=== PATIENT | female | born 1985 | race Caucasian/White ===

== ENCOUNTER 2019-02-08 16:48 | Inpatient (IN) ==
[~2019-02-08 16:48] MED LIST: *HR* Nalbuphine 10 MG/ML AMPUL IVP PRN; Famotidine 20 MG/2 ML VIAL IVP PRN; Lidocaine 1% 20 ML MDV INFILT PRN; Metoclopramide 10 MG/2 ML VIAL IVP PRN; Naloxone 0.4 MG/ML INJ IVP PRN; Ondansetron 4 MG/2 ML VIAL IVP PRN
[2019-02-08] MEDS ORDERED: Ringers Solution, Lactated 1,000 ML IVC SCH (17:00)
--- NOTE | 2019-02-08 17:04 | OB/GYN History & Physical ---
Date of Encounter: 02/08/19 Time of Encounter: 16:53 Assessment and Plan (1) 38 weeks gestation of Current visit: Yes Status: Acute (2) Intrauterine Current visit: Yes Status: Acute (3) Intact amniotic membranes during in third trimester Current visit: Yes Status: Acute (4) Active labor Current visit: Yes Status: Acute Admit to L&D for observation of labor Expectant management Intermittent monitoring Labs-CBC and type and screen Group A strep +: vancomycin 1275 mg every 12 hours Hand Molder to bedside for continuous labor support Anticipate vaginal delivery Dr. Lee is the OB on-call and is available as needed (5) Type O blood, Rh positive Current visit: Yes Status: Acute Cord blood will be collected at delivery History of Present Illness Chief complaint: contractions HPI: Ms. Ayala is a 33 year old female 012 at 38 weeks 6 days gestation with an estimated date of of 02/16/19 dated by early ultrasound. She presents with complaint of study contractions every 3-5 minutes since 1400 this afternoon. She endorses good movement and denies leakage of fluid, vaginal bleeding. She desires an unmedicated vaginal delivery. She has been followed by Dr. Alanis and the midwives throughout her . records are available electronically and have been reviewed. Her has only been complicated by a the diagnosis of group A strep from her group B strep testing. Labs: O+ GBS- GAS+ HIV- Hep B- T. Pallidum Rubella immune Varicella immune Past Med Surg Social Fam HX - Past Medical History Medical history: no medical history Psychiatric history: no psych history - Past Surgical History Additional surgical history: wisdom teeth - Social History Smoking Status: Never smoker Smokeless Tobacco Status: No Alcohol use: none Drug use: none - Family History Mother Family Member Ethnicity: Non- Living Status: Still Living Hx Family Cardiac Disorders: No Hx Family Respiratory Disorders: No Hx Family Cancer: No Hx Family GI Disorders: No Hx Family Genitourinary Disorders: No Hx Family Endocrine Disorder: No Hx Family Musculoskeletal Disorders: No Hx Family Neuromuscular Disorders: No Hx Family Neurologic Disorders: No Hx Family HEENT Disorders: No Hx Family Autoimmune Disorders: No Hx Family Reproductive Disorders: No Hx Family Psychosocial Disorders: No Hx Family Medical Disorders: Yes (hypertension) Obstetrical History - Pregnancies : 4 Para: 2 Term: 2 (# 1: 06/21/13,Male,Jr,7#10oz,Full term, Vaginal; # 3 normal spontaneous vaginal delivery () 09/04/2016 8 lbs) : 0 Ab's: 1 (# 2: MAB may 2015) Livin Medications and Allergies Vit37/Iron/Folic Acid [[place] Chewable Tablet] 1 each PO DAILY 09/04/16 [History] Allergy/AdvReac Type Severity Reaction Status Date / Time metronidazole [From Flagyl] Allergy Hives Verified 09/04/16 18:44 Penicillins Allergy Hives Verified 09/04/16 18:44 Review of System OB All systems PM: reviewed and no additional remarkable complaints except as stated Exam - Constitutional Constitutional: well developed, well nourished, no acute distress, mild distress, obese - HEENT HEENT: PERRL, Normocephaly, Mucus Membranes Moist - Neck Neck exam: full ROM - Lungs Respiratory exam: CTAB - Cardiovascular Cardiovascular exam: RRR, +S1, +S2 - Breasts Breast: bilateral: normal - Abdomen Abdomen: Present: bowel sounds normal, gravid, non tender - Extremities Extremities exam: full ROM, normal capillary refill, normal inspection, radial pulses palpable and symmetrical - Vulva Vulva: bilateral: normal - Vagina Vagina: Present: normal moisture - Cervix Dilation: 5 (per RN) Effacement: 90 Station: -2 - Uterus Uterus exam: Present: normal size, normal contour - Adnexa Adnexa: bilateral: normal - Anus/Rectum Anus/Rectum: Present: normal perianal skin Results All other labs normal. - VTE Reasons for not Prescribing Prophylaxis: Treatment not Indicated - Low risk for VTE
[2019-02-08 17:08] LABS: Amphetamine Screen,Urine Negative ng/mL (Cutoff=1000); Barbiturate Screen,Urine Negative ng/mL (Cutoff=200); Benzodiazepines Screen,Urine Negative ng/mL (Cutoff=200); Cannabinoid Screen,Urine Negative ng/mL (Cutoff = 50); Cocaine Screen,Urine Negative ng/mL (Cutoff= 300); Opiate Screen,Urine Negative ng/mL (Cutoff=300); Phencyclidine Screen,Urine Negative ng/mL (Cutoff=25)
[2019-02-08 17:36] LABS: Basophils % 0.2 %; Eosinophils # 0.1 K/mcL (0.0-0.6); Eosinophils % 0.6 %; Hematocrit 38.6 % (35.3-44.9); Hemoglobin 13.1 g/dL (11.5-15.4); Lymphocytes # 2.7 K/mcL (0.6-4.6); Lymphocytes % 14.9 %; Mean Corpuscular HGB Conc 33.9 g/dL (31.6-35.5); Mean Corpuscular Hemoglobin 29.6 pg (28.0-33.3); Mean Corpuscular Volume 87.3 fL (83.0-100.0); Mean Platelet Volume 12.4 fL (9.4-12.4); Monocytes # 1.1 K/mcL (0.0-1.3); Monocytes % 6.2 %; Neutrophils # 13.8 K/mcL (1.6-8.9); Platelet Count 158 K/mcL (140-400); Red Blood Count 4.42 M/mcL (3.82-4.97); Red Cell Distribution Width 13.6 % (11.5-14.5); Segmented Neutrophils % 77.1 %
[2019-02-08] MEDS ORDERED: Oxytocin 20 units/ LR 1000 mL 20 UNIT/1,000 ML BAG IVC ONE (17:38)
--- NOTE | 2019-02-08 19:51 | OB/GYN Procedure Note ---
Delivery - Delivery Date: 02/08/19 Provider: Calista Goodrich Intrapartum events: none Delivery induction: none Delivery monitor: external FHT (intermittent) Anesthesia: local Quantitated Blood Loss: 200 - (s) A Infant Delivery Date: 02/08/19 Infant Delivery Time: 19:07 Presentation: vertex Position: KAM Route of delivery: Gender: Male Viability: Viable Pounds: 7 Ounces: 15 Weight Gram: 3.595 kg at 1 minute: 8 at 5 mins: 9 Shoulder Dystocia: not encountered Specimens collected: cord blood Placenta: spontaneous Cord: 3 umbilical vessels - Repair Episiotomy: none Laceration Description: Perineal - 1st Degree (repaired with 3-0 vicryl) - Complications Delivery complications: none Delivery comments: This is a 33 year old G4 now P3013 who was admitted for active labor. She progressed spontaneously to the second stage of labor. She pushed for about 10 minutes. She delivered a viable, male , "Justin", KAM over a 1st degree laceration. A nuchal cord was not identified. A shoulder dystocia was not encountered. The infant was placed on the maternal abdomen and allowed to transition spontaneously. The cord was double clamped by bean sprout grower after pulsations ceased and cut by FOB. scores were 8 at 1 minute and 9 at 5 minutes. The infant weighed 7lbs 15oz (3595g). The placented delivered spontaneously, intact ([place]) with a 3-vessel cord. Inspection revealed a first degree laceration. The laceration was repaired with a 3-0 Vicryl suture. The uterus was firm with no active bleeding. EBL was 200 mL. Placenta and umbilical artery blood gases were not sent. There were no complications during the procedure. Mom and baby are skin to skin following delivery. - Disposition Mom disposition: stable in LDR disposition: stable in LDR
[2019-02-08] MEDS ORDERED: Benzocaine/Menthol 56 GM AEROSOL SPRAY TP PRN (21:00)
[2019-02-08] MEDS ORDERED: Acetaminophen 325 MG TABLET PO PRN (21:00)
[2019-02-08] MEDS ORDERED: Oxytocin 20 units/ LR 1000 mL 20 UNIT/1,000 ML BAG IVC SCH (21:00)
[2019-02-08] MEDS: Ibuprofen 600 MG TABLET PO PRN (22:49)
[2019-02-09] MEDS: Ibuprofen 600 MG TABLET PO PRN ×2 (08:13→15:49)
[2019-02-09] MEDS ORDERED: Prenatal Vit/FA 1 EACH TABLET PO SCH (09:00)
--- NOTE | 2019-02-09 11:25 | Discharge Summary ---
Date of Encounter: 02/09/19 Time of Encounter: 11:20 - Discharge Diagnosis (1) Breast feeding status of mother Priority: Secondary Status: Acute (2) (normal spontaneous vaginal delivery) Priority: Primary Status: Acute Comments: Pt meeting milestones. She reports some pain with latch. No other complaints. - Discharge Medications Prescriptions: New Ibuprofen [Motrin] 600 mg PO Q6HR PRN #30 tablet PRN Reason: Cramping Benzocaine/Menthol [place] [Dermoplast [place]] 1 appl TP QID PRN aerosol PRN Reason: See Comments Docusate [Colace] 100 mg PO BID #30 capsule Continued Vit37/Iron/Folic Acid [Prenata Chewable Tablet] 1 each PO DAILY Home Medications: Vit37/Iron/Folic Acid [Prenata Chewable Tablet] 1 each PO DAILY 09/04/16 [History] Benzocaine/Menthol [place] [Dermoplast [place]] 1 appl TP QID PRN aerosol 02/09/19 [Rx] Docusate [Colace] 100 mg PO BID #30 capsule 02/09/19 [Rx] Ibuprofen [Motrin] 600 mg PO Q6HR PRN #30 tablet 02/09/19 [Rx] Allergies/Adverse Reactions: Allergy/AdvReac Type Severity Reaction Status Date / Time metronidazole [From Flagyl] Allergy Hives Verified 09/04/16 18:44 Penicillins Allergy Hives Verified 09/04/16 18:44 Data Procedures and tests throughout hospitalization: Laboratory Tests 02/08/19 02/08/19 16:23 17:00 WBC 17.8 H RBC 4.42 Hgb 13.1 Hct 38.6 MCV 87.3 MCH 29.6 MCHC 33.9 RDW 13.6 Plt Count 158 MPV 12.4 Immature Gran % 1.0 Seg Neutrophils % 77.1 Lymphocytes % 14.9 Monocytes % 6.2 Eosinophils % 0.6 Basophils % 0.2 Neutrophils # 13.8 H Lymphocytes # 2.7 Monocytes # 1.1 Eosinophils # 0.1 Basophils # 0.0 Urine Opiates Screen Negative Ur Barbiturates Screen Negative Ur Phencyclidine Scrn Negative Ur Amphetamines Screen Negative U Benzodiazepines Scrn Negative Urine Cocaine Screen Negative U Marijuana (THC) Screen Negative Ur Drug Screen Interp See Below Labs on day of discharge: Labs from last 24 hours 02/08/19 02/08/19 17:00 16:23 WBC 17.8 H RBC 4.42 Hgb 13.1 Hct 38.6 MCV 87.3 MCH 29.6 MCHC 33.9 RDW 13.6 Plt Count 158 MPV 12.4 Immature Gran % 1.0 Seg Neutrophils % 77.1 Lymphocytes % 14.9 Monocytes % 6.2 Eosinophils % 0.6 Basophils % 0.2 Neutrophils # 13.8 H Lymphocytes # 2.7 Monocytes # 1.1 Eosinophils # 0.1 Basophils # 0.0 Urine Opiates Screen Negative Ur Barbiturates Screen Negative Ur Phencyclidine Scrn Negative Ur Amphetamines Screen Negative U Benzodiazepines Scrn Negative Urine Cocaine Screen Negative U Marijuana (THC) Screen Negative Ur Drug Screen Interp See Below Date of admission: 02/08/19 16:48 Consults: 02/08/19 21:00 Consult to Handwriting Expert [CONS] Routine Comment: Vaginal delivery, consult needed Discharging clinician: Ludy Lundberg Anticipated date of discharge: 02/09/19 - Patient Status Disposition: Home, Self-Care Condition: Good Functional capacity at discharge: independent ambulation Overall status at discharge: patient is progressing back to baseline - Discharge Instructions Follow Up With: Calista Goodrich [Advanced Practice Nurse] - - Diet and Activity Activity: increase activity as tolerated Diet: regular diet Hospital Course Reason for admission: active labor Delivery: Episiotomy: none Laceration: 1st degree Other procedures: none complications: none Discharge diagnosis: IUP at term delivered baby: male Hospital course: - Delivery Date: 02/08/19 Provider: Calista Goodrich Intrapartum events: none Delivery induction: none Delivery monitor: external FHT (intermittent) Anesthesia: local Quantitated Blood Loss: 200 - (s) Infant A Infant Delivery Date: 02/08/19 Infant Delivery Time: 19:07 Presentation: vertex Position: KAM Route of delivery: Gender: Male Viability: Viable Pounds: 7 Ounces: 15 Weight Gram: 3.595 kg at 1 minute: 8 at 5 mins: 9 Shoulder Dystocia: not encountered Specimens collected: cord blood Placenta: spontaneous Cord: 3 umbilical vessels - Repair Episiotomy: none Laceration Description: Perineal - 1st Degree (repaired with 3-0 vicryl) - Complications Delivery complications: none - Disposition Mom disposition: home PPD1 [place] disposition: home with mother, Time Attestation: Total time spent providing and/or coordinating discharge services: Time Spent: Less than 30 minutes Exam - Constitutional Vitals: Temp Pulse Resp BP Pulse Ox 98.2 F 93 16 108/75 98 02/09/19 08:19 02/09/19 08:19 02/09/19 08:19 02/09/19 08:02/09/19 00:50 General appearance IM: A&O X 3 - Respiratory Respiratory exam: Present: CTAB - Cardiovascular Cardiovascular exam IM: Present: RRR, +S1, +S2 - GI/Abdominal GI/Abdominal exam IM: soft - Uterine Tone: Firm Uterus Position: At Umbilicus, Right of Midline Additional comments: pt with full bladder - Extremities Exam Extremities exam IM: Present: normal inspection - Neurological Exam Neurological exam: normal gait, oriented X3 - Psychiatric Additional comments: reports good mood
[2019-02-09 15:48] VITALS: BP 117/72
== END 2019-02-09 21:30 | disposition home or self-care (01) | DRG 806 ==
LOC: 1NENULAB → 1NENUOBS 22:44
PROVIDERS: ADMIT Advanced Practice Midwife; ATTEND Advanced Practice Midwife